=== PATIENT | female | born 1995 | race Caucasian/White ===

== ENCOUNTER 2021-02-17 22:28 | Emergency (ER) | payer OTHER, SELFPAY ==
[2021-02-17 22:29] VITALS: BP 127/83; PULSE 86; RESP 15; TEMP 35.8; O2SAT 99; BMI 33.2
[2021-02-17 22:30] VITALS: BP 127/83; PULSE 86; RESP 15; TEMP 35.8; O2SAT 99
[2021-02-17 22:48] LABS: Mucous, Urine 0 SEEN /hpf (<or=2+); Red Blood Cells-Urine 0 SEEN /hpf (0-5)
[2021-02-17 22:58] LABS: Color, Urine Yellow (Yellow); Glucose, Dipstick Normal (Normal); Ketone-Dipstick 5 mg/dl (Negative); Leukocyte Esterase-Dipstick 500 /ul (Negative); Nitrite-Dipstick Positive (Negative); Occult Blood-Urine 250 /ul (Negative); Protein-Dipstick 100 mg/dl (Negative); Urine Bilirubin Dipstick Negative (Negative); Urine Clarity Cloudy (Clear); Urine Urobilinogen Normal (Normal)
[2021-02-17 23:05] LABS: Squamous Epithelial Cells - UA 0-5 SEEN /hpf (5-10)
[2021-02-17 23:06] LABS: Bacteria 1+ /hpf (None Seen); White Blood Cells 50-100 SEEN /hpf (0-5)
--- NOTE | 2021-02-17 23:31 | EDS_ITS ---
HPI HPI - Female History of Present Illness Chief Complaint: Complaint Narrative Narrative: 24-year-old female presenting with dysuria for last few days. She now having right-sided flank pain. She states has not had a fever or chills. She does not have nausea or vomiting. Patient states she has history of UTIs but usually just drinks a lot of water. She has not seen her primary care doctor in 2 years. She has an appointment coming up next month. PFSH PFSH Home Medications phenazopyridine [Pyridium] 200 mg PO BID PRN PRN #8 tab 02/17/21 [Rx Last Taken Unknown] sulfamethoxazole-trimethoprim [Bactrim DS] 1 tab PO BID #24 tab 02/17/21 [Rx Last Taken Unknown] Allergy/AdvReac Type Severity Reaction Status Date / Time No Known Allergies Allergy Verified 02/17/21 22:30 Social History Smoking Status: Never smoker ROS ROS ED Constitutional Constitutional ED: Denies chills, fever(s) or sweats Eyes Eyes: Denies blurry vision or change in vision ENT ENT ED: Denies ear pain or sore throat Cardiovascular Cardiovascular: Denies chest pain, palpitations or racing heartbeat Respiratory/Chest Respiratory/Chest: Denies cough, dyspnea or sputum Gastrointestinal Gastrointestinal: Reports abdominal pain; Denies constipation, diarrhea, nausea or vomiting Genitourinary Genitourinary ED: Reports dysuria and urinary frequency; Denies hematuria Musculoskeletal Musculoskeletal: Reports other Details: Right flank pain ; Denies arthralgias, myalgias or neck pain Integumentary Denies abscess, Abrasions or rash Neurologic Neurologic: Denies headache(s), paresthesias or weakness Psychiatric Psychiatric: Denies anxiety, depression, suicidal ideation or suicidal thoughts Endocrine Endocrinology: Denies polydipsia or polyuria EXAM Physical Exam Const Vital Signs: 02/17/21 22:29 02/17/21 22:30 Temperature 96.5 F L 96.5 F L Temperature Source Temporal Temporal Pulse Rate 86 86 Respiratory Rate 15 15 Blood Pressure 127/83 H 127/83 H Blood Pressure Mean 97 97 Pulse Ox 99 99 Oxygen Delivery Method Room Air Room Air Positive well nourished General Appearance ED: NAD; Negative for pallor HEENT Reports moist mucous membranes Negative for trauma Eyes PERRL and EOMs intact bilaterally Resp normal respiratory effort and clear to auscultation bilaterally Cardio regular rate and regular rhythm Back/Spine General Back: CVA tenderness right Neuro oriented x3 Sensorium / Orientation: alert Psych mental status grossly normal Skin General Skin Exam: Negative for jaundice or pallor MDM MDM MDM Narrative Medical decision making narrative: Patient presenting with right flank pain and dysuria. She does not have history of kidney stones. The pain was gradual in onset and started from dysuria into flank pain. I believe this is likely pyelonephritis. Patient will be treated with Bactrim first dose given in the ED. Urine culture was sent. She will be given Pyridium for symptoms. Patient stable for discharge at this time. Impression: 1. Pyelonephritis Lab Data Labs: Laboratory Results - last 24 hr 02/17/21 22:45 Urine Color Yellow Urine Clarity Cloudy Urine pH 6.0 Ur Specific Rosenberg 1.020 Urine Protein 100 H Urine Glucose (UA) Normal Urine Ketones 5 H Urine Occult Blood 250 H Urine Nitrite Positive H Urine Bilirubin Negative Urine Urobilinogen Normal Ur Leukocyte Esterase 500 H Urine RBC 0 SEEN Urine WBC 50-100 SEEN Ur Squamous Epith Cells 0-5 SEEN Urine Bacteria 1+ Urine Mucus 0 SEEN Discharge Plan Triage Chief Complaint: Complaint ED Provider: Boy Longo Dx/Rx/DC Orders Instructions: ED CYSTITIS Female Adult Prescriptions: New sulfamethoxazole-trimethoprim [Bactrim DS] 800-160 mg tablet 1 tab PO BID Qty: 24 RF: 0 phenazopyridine [Pyridium] 200 mg tablet 200 mg PO BID PRN PRN (Reason: Pain) Qty: 8 RF: 0 Primary Care Provider: Sharath Summers Referrals: Sharath Summers DO [Primary Care Provider] - Disposition Disposition: Home, Self Care
[2021-02-17] MEDS: Phenazopyridine 95 MG Tablet 190 MG PO (23:37)
[2021-02-17] MEDS: Smz/Tmp Ds Tablet 1 TABLET PO (23:37)
[2021-02-17 23:38] VITALS: BP 124/74; PULSE 82; RESP 16; O2SAT 98
== END 2021-02-17 23:47 | disposition home or self-care (01) ==
PROVIDERS: Emergency Provider Student in an Organized Health Care Education/Training Program; PCP Student in an Organized Health Care Education/Training Program
DX: N12 Tubulo-interstitial nephritis, not specified as acute or chronic (principal); Z87.440 Personal history of urinary (tract) infections
CPT/HCPCS: 81001; 87077; 87086; 87088; 87186; 99283